=== PATIENT | female | born 1975 ===

== ENCOUNTER 2017-05-23 14:50 | Outpatient (CLI) | payer BC ==
--- NOTE | 2017-05-23 16:04 | Diagnostic Imaging Report ---
Indication: COUGH Technique: PA and lateral views of the chest. Findings: Comparison: None Bilateral breast implants are present. The bones and remaining extra pulmonary soft tissues, cardiomediastinal silhouette, pulmonary vasculature and parenchyma, and pleural surfaces are unremarkable. IMPRESSION: Previous bilateral augmentation mammoplasty Otherwise negative PA and lateral chest radiographs
== END 2017-05-23 16:50 | disposition home or self-care (01) ==
LOC: RAD 14:50
DX: R05 Cough (principal); R06.02 Shortness of breath
CPT/HCPCS: 71020